=== PATIENT | female | born 1955 | race Caucasian/White ===

== ENCOUNTER → 2023-04-04 10:26 | Outpatient (REF) | payer BC, SELFPAY | LOC: WOUND 10:26 | PROVIDERS: ATTENDING PHYSICIAN Surgery; REFERRING PHYSICIAN Family Medicine | DX: S81.802A Unspecified open wound, left lower leg, initial encounter (principal); I50.9 Heart failure, unspecified; S90.02XA Contusion of left ankle, initial encounter; X58.XXXA Exposure to other specified factors, initial encounter | CPT/HCPCS: 11042; 97597; 99212 ==

== ENCOUNTER → 2024-03-20 11:02 | Outpatient (REF) | payer BC, SELFPAY | LOC: DHSLP 11:02 | PROVIDERS: ATTENDING PHYSICIAN Internal Medicine Critical Care Medicine; FAMILY PHYSICIAN Internal Medicine Critical Care Medicine | DX: G47.33 Obstructive sleep apnea (adult) (pediatric) (principal) | CPT/HCPCS: 95800 ==

== ENCOUNTER → 2024-03-23 09:07 | Outpatient (REF) | payer BC, SELFPAY | LOC: RAD 09:07 | PROVIDERS: ATTENDING PHYSICIAN Internal Medicine Rheumatology; FAMILY PHYSICIAN Family Medicine | DX: M81.0 Age-related osteoporosis without current pathological fracture (principal) | CPT/HCPCS: 77080 ==